=== PATIENT | female | born 1990 | race Two or more races ===

== ENCOUNTER 2024-07-26 17:03 | Emergency (ER) | payer MEDICAID, OTHER ==
[~2024-07-26] VITALS: Ht 157.5 cm; Wt 83.4 kg
[2024-07-26 17:47] VITALS: BP 142/98; PULSE 78; RESP 16; TEMP 98.9; O2SAT 98
--- NOTE | 2024-07-26 17:59 | ED.PDOC ---
History of Present Illness(SKN HPI Comments 34 year old female presents to the ED for the c/c of a Dog bite. Pt states that she was trying to separate her 2 dogs fighting around 2pm today when her Pittbull bit her right inner thigh, and left 2 puncture wounds. Pt notes that Dog is up to date with all of its shots. Noted pt has a triangle shaped la ceration that is 1x1x1 cm, no FB noted. Denies fever, SOB, chest pain, abdominal pain, nausea, vomiting, diarrhea, headache, dizziness, vision changes, or numbness/tingling of extremities. No other symptoms or modifying factors reported at this time. Patient is alert and oriented x4 and has a stable gait. Chief Complaint: Animal Bite Time Seen by MD: 17:51 History of Present Illness: Nurses Notes, Medications, Allergies Allergies: Coded Allergies: Ibuprofen (Verified Allergy, Unknown, 07/26/24) Uncoded Allergies: PENICILLIN (Allergy, Unknown, 07/26/24) Home Meds Active Scripts Amoxicillin & Pot Clavulanate (AUGMENTIN TABLET) 875 Mg Tb, 875 MG PO BID for 7 Days, #14 TAB 0 Refills Prov:JOSH UPTON NP 07/26/24 Information Source: Patient Mode of Arrival: Ambulatory Severity: Moderate Timing: Hours Duration: Since onset, Hours Prehospital treatment: None Location: Extremities (right thigh ) Mechanism: Dog (bite) Occurence: Outdoors Object: None Condition of Object: None Retained Foreign Body: No Wound Type: Laceration, Abrasion, Puncture Immunization Status of Animal: Current Tetanus: >5 Years History of: None Associated Signs and Symptoms: Abrasion Past Medical History PAST MEDICAL HISTORY: Denies Surgical History: Denies all surgeries SPINNING MULE TENDER History: No Pertinent SPINNING MULE TENDER History Family History Family History: Reviewed,noncontributory to illness, No family hx of Cancer, No family hx of DM, No family hx of Heart glo, No family hx of HTN, No family hx ofKidney glo, No family hx of Liver glo, No family hx of Lung glo, No family hx of Stroke Social History Smoker: Non-Smoker Alcohol: Denies ETOH Use Drugs: Denies Drug Use Lives In: Home Constitutional: denies: chills, diaphoresis, fatigue, fever, malaise, sweats, weakness, others EENTM: denies: blurred vision, double vision, ear bleeding, ear discharge, ear drainage, ear pain, ear ringing, eye pain, eye redness, hearing loss, mouth pain, mouth swelling, nasal discharge, nose bleeding, nose congestion, nose pain, photophobia, tearing, throat pain, throat swelling, voice changes, others Respiratory: denies: cough, hemoptysis, orthopnea, SOB at rest, shortness of breath, SOB with excertion, stridor, wheezing, others Cardiovascular: denies: chest pain, dizzy spells, diaphoresis, Dyspnea on exertion, edema, irregular heart beat, left arm pain, lightheadedness, palpitations, PND, syncope, others Gastrointestinal: denies: abdomen distended, abdominal pain, blood streaked bowels, constipated, diarrhea, dysphagia, difficulty swallowing, hematemesis, melena, nausea, poor appetite, poor fluid intake, rectal bleeding, rectal pain, vomiting, others Genitourinary: denies: abnormal vagina bleeding, burning, dyspareunia, dysuria, flank pain, frequency, hematuria, incontinence, pain, , vagina discharge, urgency, others Neurological: denies: dizziness, fainting, headache, left sided numbness, left sided weakness, numbness, paresthesia, pre-existing deficit, right sided num bness, right sided weakness, seizure, speech problems, tingling, tremors, weakness, others Musculoskeletal: denies: back pain, gout, joint pain, joint swelling, muscle pain, muscle stiffness, neck pain, others Integumetry: reports: laceration, wounds; denies: bruises, change in color, change in hair/nails, dryness, lesions, lumps, rash, others Allergic/Immunocompromised: denies: Difficulty Healing, Frequent Infections, Hives, Itching, others Hematologic/Lymphatic: denies: anemia, blood clots, easy bleeding, easy bruising, swollen glands, others Endocrine: denies: excessive hunger, excessive sweating, excessive thirst, excessive urination, flushing, intolerance to cold, intolerance to heat, unexplained weight gain, unexplained weight loss, others Psychiatric: denies: anxiety, bipolar disorder, depression, hopeless, panic disorder, schizophrenia, sleepless, suicidal, others All Other Systems: Reviewed and Negative Physical Exam General Appearance: No Apparent Distress, Normal HEENT: Normal ENT Inspection, Pharynx Normal, TMs Normal Neck: Full Range of Motion, Non-Tender, Normal, Normal Inspection Respiratory: Chest Non-Tender, Lungs Clear, No Accessory Muscle Use, No Respiratory Distress, Normal Breath Sounds Cardiovascular: No Murmur, No Gallop, Regular Rate/Rhythm Breast Exam: Deferred Gastrointestinal: No Organomegaly, Non Tender, No Pulsatile Mass, Normal Bowel Sounds, Soft Genitalia: Deferred Pelvic: Deferred Rectal: Deferred Extremities: No calf tenderness, Normal capillary refill, Normal inspection, Normal range of motion, Non-tender, No pedal edema Musculoskeletal : Location: Right Extremity Location: Thigh (1x1x1 triangle shaped laceration with 2 puncture wounds, no FB noted) Apperance: Normal Neurologic: Alert, communications lead II-XII nml as Tested, No Motor Deficits, Normal Affect, Normal Mood, No Sensory Deficits Cerebellar Function: Normal Reflexes: Normal Skin: Dry, Normal Color, Warm Lymphatic: No Adenopathy Was a procedure done? Was a procedure done?: Yes Laceration Repair : Anesthetic: Lidocaine (5cc), Without epi Laceration Repair Prep: Saline, by Irrigation Laceration Repair: Nothing Informed consent obtained: Yes Risks, benefits, and alternati: Yes Differential Diagnosis (INTG) Differential Diagnosis: Abrasion, Puncture Wound X-Ray, Labs, Meds, VS Vital Signs Date Time Temp Pulse Resp B/P (MAP) Pulse Ox O2 Delivery O2 Flow Rate FiO2 07/26/24 17:47 98.9 89 16 142/98 (113) 98 98.9 07/26/24 17:47 78 16 98 Room Air 07/26/24 17:18 98.9 111 18 139/97 (111) 95 98.9 Current Medications Medications (Trade) Dose Ordered Sig/Denise Route Start Time Stop Time Status Last Admin Diphtheria/ Tetanus/Acell Pertussis (Boostrix T-Dap) 0.5 ml ONCE ONCE IM 07/26/24 18:15 07/26/24 18:16 DC 07/26/24 18:24 X-Ray, Labs, Meds, VS Comment 34 year old female presents to the ED for the c/c of a Dog bite. Based on the history, exam, and test performed, there does not seem to be a retained foreign body, nerve injury, vascular injury, tendon injury, bone injury or foreign body. Wound appears clean. No evidence of purulent discharge. Doubtful for rabies as the dog is not a wild animal. No rabies vaccine given. Last tetanus UPD Wound cleaned in the ER with jet irrigation. Will let wound heal by secondary intention to decrease risk of abscess formation. Patient will be discharged home with prophylactic antibiotics. Will discharge home with Augmentin 875mg PO BID x 7days. Patient to [facility] or PCP in 2-3 days for wound re- check. Return to ER as needed. Time of 1ST Reevaluation: 18:28 Reevaluation 1ST: Unchanged Patient Education/Counseling: Diagnosis, Treatment Family Education/Counseling: No Family Present Departure 1 Departure Time of Disposition: 18:02 Impression: Primary Impression: Dog bite Qualified Codes: W54.0XXA - Bitten by dog, initial encounter Disposition: HOME / SELF CARE / HOMELESS Condition: Fair e-Prescriptions Amoxicillin & Pot Clavulanate (AUGMENTIN TABLET) 875 Mg Tb 875 MG PO BID for 7 Days, #14 TAB 0 Refills Prov: JOSH UPTON NP 07/26/24 Critical Care Note Critical Care Time?: No Stability Stability form required: No Heart Score Heart Score: Heart Score Response (Comments) Value History N/A 0 EKG N/A 0 Age N/A 0 Risk Factors N/A 0 Troponin N/A 0 Total 0 I personally scribed for JOSH UPTON NP ([email or web address]) on 07/26/24 at 17:59. Nelli ctronically submitted by Beni Morris ([email or web address]). JOSH UPTON NP July 26, 2024 17:59
[2024-07-26] MEDS ORDERED: AUG875T PO (18:05)
[2024-07-26] MEDS: TETANUS-DIPTH-ACEL PERTUSSIS 0.5ML SYR Tdap IM ONE (18:24)
== END 2024-07-26 18:34 | disposition home or self-care (01) ==
LOC: ER 17:03
DX: S71.111A Laceration without foreign body, right thigh, initial encounter (principal); Z88.6 Allergy status to analgesic agent; Z79.899 Other long term (current) drug therapy; W54.0XXA Bitten by dog, initial encounter; Y93.89 Activity, other specified; Y92.89 Other specified places as the place of occurrence of the external cause; Y99.8 Other external cause status
CPT/HCPCS: 90471; 90715